=== PATIENT | male | born 2000 | race Hispanic/Latino ===

== ENCOUNTER → 2021-07-09 | Day surgery (SDC) | payer BC, OTHER ==
[~2021-07-09] MED LIST: FENTANYL CITRATE/PF 100MCG/2 ML INJ ONE; HYOSCYAMINE SULFATE 0.5 MG/ML INJ ONE; KETAMINE HCL INJ 50 MG/ML 10 ML VIAL ONE; MIDAZOLAM HCL 2 MG/2 ML VIAL ONE; PROPOFOL IV EMULSION 10 MG/ML 20 ML VIAL ONE
[2021-07-09 15:50] VITALS: BP 124/81
== END | disposition home or self-care (01) ==
LOC: OR 09:37
PROVIDERS: ATTEND Internal Medicine Gastroenterology
DX: K52.9 Noninfective gastroenteritis and colitis, unspecified (principal); K56.1 Intussusception; K63.89 Other specified diseases of intestine; Z71.3 Dietary counseling and surveillance; J45.909 Unspecified asthma, uncomplicated; Z71.89 Other specified counseling
CPT/HCPCS: 45380; J1980; J2250; J2704; J3010; U0002; 45378